=== PATIENT | female | born 1965 | race African-American/Black ===

== ENCOUNTER 2024-06-06 21:44 | Emergency (ER) | payer OTHER ==
[~2024-06-06] VITALS: Ht 157.5 cm; Wt 36.4 kg
[2024-06-06 22:07] VITALS: TEMP 97.5
[2024-06-06 23:08] VITALS: BP 134/65; PULSE 100; RESP 18; O2SAT 100
[2024-06-06] MEDS: AMOX TR/POT CLAV 875 MG/125 MG TABLET PO ONE (23:25)
[2024-06-06] MEDS: LIDOCAINE 1% 10 ML VIAL SQ ONE (23:25)
[2024-06-06] MEDS: PERTUSS(ACELL),DIPH,TET/PF 0.5 ML SYRINGE [ADULT] IM. ONE (23:25)
[2024-06-07] MEDS ORDERED: CELE100 PO (00:24)
[2024-06-07] MEDS ORDERED: AMOX-457 PO (00:24)
== END 2024-06-07 00:41 | disposition home or self-care (01) ==
LOC: EMS 21:44
DX: S61.251A Open bite of left index finger without damage to nail, initial encounter (principal); M17.0 Bilateral primary osteoarthritis of knee; W54.0XXA Bitten by dog, initial encounter; Y93.89 Activity, other specified; Y92.89 Other specified places as the place of occurrence of the external cause; Y99.8 Other external cause status
CPT/HCPCS: 99283; 90715; 90471; 12001; J3490